=== PATIENT | female | born 1940 | race Caucasian/White ===

== ENCOUNTER 2017-02-06 10:30 | Inpatient (IN) | payer OTHER, MEDICARE ==
[~2017-02-06] VITALS: Ht 170.2 cm; Wt 73.7 kg
[~2017-02-06 10:30] MED LIST: AMLO2.5T PO; ATOR10TA15 PO; ESTR1 PO; HYDR-3580 PO; NORE5TAB PO; TYLE650T9 PO
[2017-02-07 05:53] VITALS: BP 147/70; PULSE 81; RESP 20; TEMP 99.2; O2SAT 96
[2017-02-07] MEDS ORDERED: DEXAMETHASONE SOD PHOS 20 MG/5 ML VIAL ONE (06:06)
[2017-02-07] MEDS ORDERED: VANCOMYCIN HCL 1000 MG VIAL ONE (06:07)
[2017-02-07] MEDS ORDERED: SODIUM CHLOR 0.9% 250 ML INJ 250 ML ONE ×2 (06:07→06:10)
[2017-02-07] MEDS: DEXAMETHASONE SOD PHOS 20 MG/5 ML VIAL IV SCH ×2 (06:10→06:21)
[2017-02-07] MEDS ORDERED: POVIDONE IODINE 7.5% SCRUB 118 ML BOTTLE TOPICAL SCH (06:15)
[2017-02-07] MEDS ORDERED: METOPROLOL TARTRATE 25 MG TAB PO PRN (06:15)
[2017-02-07] MEDS ORDERED: VANCOMYCIN 1000 MG/NS 250 ML (for <70 kg) IV SCH ×2 (06:15)
[2017-02-07] MEDS ORDERED: LACTATED RINGER'S 1000 ML IV PRN (06:15)
[2017-02-07] MEDS ORDERED: INSULIN HUMAN REGULAR 1,000 UNITS/10 ML VIAL SQ PRN (06:15)
[2017-02-07] MEDS ORDERED: CHLORHEXIDINE GLUCONATE 2 % 1 PACK (2 CLOTHS) TOPICAL PRN (06:15)
[2017-02-07] MEDS ORDERED: ceFAZolin 2 GM PREMIX 50 ML IV SCH (06:15)
[2017-02-07] MEDS ORDERED: POVIDONE IODINE 5% (ANTISEPSIS KIT) 4 APPLICATIONS EACH NARE PRN (06:15)
[2017-02-07] MEDS ORDERED: SODIUM CHLORID 0.9% 500 ML IV PRN (06:15)
[2017-02-07] MEDS ORDERED: GENTAMICIN SULFATE 80 MG/2 ML VIAL ONE (06:23)
[2017-02-07] MEDS ORDERED: FAMOTIDINE 20 MG/2 ML VIAL ONE (06:38)
[2017-02-07] MEDS ORDERED: MIDAZOLAM HCL 2 MG/2 ML VIAL ONE (06:38)
[2017-02-07] MEDS ORDERED: ACETAMINOPHEN 1000 MG/100 ML VIAL IV ONE (06:42)
[2017-02-07] MEDS ORDERED: fentaNYL CITRATE 250 MCG/5 ML AMP ONE (06:42)
[2017-02-07] MEDS ORDERED: TRANEXAMIC ACID INJ 716 MG in SODIUM CHLORIDE 0.9% INJ 100 ML IV SCH ×2 (07:00→09:30)
[2017-02-07] MEDS ORDERED: EXPAREL PERI-ARTICULAR INJECTION (TOTAL VOL. 60 ML) P-ARTICULR SCH ×2 (07:00)
[2017-02-07] MEDS ORDERED: NALOXONE HCL 0.4 MG/ML AMP IV PRN (08:45)
[2017-02-07] MEDS ORDERED: Post-op Orders (for Pharmacy) MISC XX ONE (08:45)
[2017-02-07] MEDS ORDERED: ACETAMINOPHEN/HYDROcodone 325 MG/5 MG TAB PO PRN ×2 (08:45)
[2017-02-07] MEDS ORDERED: SODIUM CHLORIDE 0.9% FLUSH 5 ML FLUSH IVF PRN (08:45)
[2017-02-07] MEDS ORDERED: diphenhydrAMINE HCL 50 MG/ML VIAL IV PRN (08:45)
[2017-02-07] MEDS ORDERED: BISACODYL 10 MG SUPP RECTAL PRN (08:45)
[2017-02-07] MEDS ORDERED: ONDANSETRON HCL 4 MG/2 ML VIAL IVP PRN (08:45)
[2017-02-07] MEDS ORDERED: ALUMINUM/MAGNESIUM/SIMETH 30 ML CUP PO PRN (08:45)
[2017-02-07] MEDS ORDERED: ZOLPIDEM TARTRATE 5 MG TAB PO PRN (08:45)
[2017-02-07] MEDS ORDERED: MORPHINE SULFATE 4 MG/ML INJ IV PUSH PRN (08:45)
--- NOTE | 2017-02-07 08:51 | PD.OP ---
cc: Supa Rosa MD Operative Report Date of Surgery: Feb 07, 2017 Preoperative Diagnosis: Right hip severe osteoarthritis Postoperative Diagnosis: Same Procedure: Right total hip arthroplasty Anesthesia: Gen. Surgeon: Supa Rosa Track Announcer(s): OPAL Alvarez The surgical procedure was assisted by my Advanced Registered Nurse Practitioner. My MUSHROOM LABORER presence was necessary throughout this case for the manipulation and positioning of the surgical extremity. My MUSHROOM LABORER was assisting me throughout the duration of this procedure. The skill set of an Advance Registered Nurse Practitioner was medically necessary to complete this procedure. During the surgical case, the instructor adjunct surgical technician was working at the back table and the Advance Registered Nurse Practitioner was directly assisting me. Operation and Findings: IMPLANT DESCRIPTION: 1. [place] Gription Cup, acetabular size 54. 2. [place] AltrX polyethylene, neutral. 4. Corail femoral stem size 11, no collar, standard offset. 5. Femoral head/neck metal, 36, +5. ESTIMATED BLOOD LOSS: 300 cc. JUSTIFICATION FOR PROCEDURE: The patient has end-stage osteoarthritis to the hip. There is an attached conservative measures pathway form in the chart that describes the nonoperative measures that were undertaken prior to consideration of surgical management. The patient understood the risks and benefits of surgical management. See my office notes for further details. PROCEDURE: The patient was brought back to the operative theatre. Adequate anesthesia was obtained. The patient received intravenous vancomycin and Ancef. Note that a test dose of Ancef was given prior to given the full dose. The patient was carefully placed on the operative table. The lower extremity was prepped and draped in the usual sterile fashion. Fluoroscopic images were obtained. We made a standard anterior incision over the hip. We dissected through the TFL fascia, exposing the anterior capsule. Arthrotomy was performed in a T-shaped fashion. The capsule was tagged with a #2 FiberWire. End-stage arthritis was identified. Osteotomy was performed through the femoral neck exposing the acetabulum. Remnants of the labrum were resected and osteophytes were removed. We sequentially reamed the acetabulum. We trialed the hip and placed the final cup into position. This was done under fluoroscopic guidance to obtain the appropriate inclination and anteversion. A manhole cover was placed into the acetabular component. We then placed the final polyethylene into position and confirmed that it was well seated. Capsular attachments on the calcar and the inner aspect of the greater trochanter were resected. On the proximal aspect of the femur we used a rongeur , box osteotome, canal finder, sequential broaches and lateralizing rasp. We calcar planed the proximal femur. Then thoroughly irrigated the wound. We trialed the hip with the appropriate size stem. We placed the final stem in to position and trialed again. The hip was stable while it was externally rotated 70 degrees when the leg was lowered to the floor. The final head was applied, and final fluoroscopic images were obtained. The wound was thoroughly irrigated again. Interarticular injection of liposomal bupivacaine was given. The capsule was closed with #2 FiberWire and #1 Vicryl. The deep fascia was closed with a #2 Stratafix, followed by 2-0 Vicryl in the skin and maral. Postop plan is to weight-bear as tolerated. DVT prophylaxis will be performed with Jessenia, MEHNAZ palma, early mobilization, and Lovenox followed by aspirin. Supa Rosa MD Feb 07, 2017 08:51
[2017-02-07] MEDS ORDERED: ENOX40P SQ (08:54)
[2017-02-07] MEDS ORDERED: NORC5TAB PO (08:54)
[2017-02-07] MEDS ORDERED: ASPI325T PO (08:54)
[2017-02-07] MEDS ORDERED: NORETHINDRONE 5 MG PO SCH (09:00)
[2017-02-07] MEDS: ESTRADIOL 1 MG TAB PO SCH (09:00)
[2017-02-07] MEDS ORDERED: HYDROmorphone HCL PF 1 MG/ML VIAL IV PRN (09:00)
--- NOTE | 2017-02-07 09:19 | RADRPT ---
EXAM DATE/TIME: 02/07/2017 07:17 [facility] COMPARISON: No previous studies available for comparison. INDICATIONS : Right total hip replacement. MEDICAL HISTORY : None. SURGICAL HISTORY : None. ENCOUNTER: Initial ACUITY: 1 day PAIN SCORE: Non-responsive. LOCATION: Right Hip. FINDINGS: AP and oblique views of the right hip were obtained and demonstrate the patient is status post right hip arthroplasty. The femoral and acetabular components are intact. There is normal alignment. CONCLUSION: Expected postoperative change status post arthroplasty. Feng Quigley MD on February 07, 2017 at 9:17 Board Certified Radiologist. This report was verified electronically.
[2017-02-07] MEDS: SODIUM CHLOR 0.9% 1000 ML INJ 1,000 ML IV SCH ×2 (09:28→20:28)
[2017-02-07] MEDS ORDERED: *HYDROmorphone PF 1 MG VIAL PERIprocedural Use ONLY ONE (09:34)
[2017-02-07] MEDS: SODIUM CHLORIDE 0.9% FLUSH 5 ML FLUSH IVF SCH ×2 (09:59→20:28)
[2017-02-07] MEDS ORDERED: DO NOT ADM ANY ANTICOAGULANT DRUGS PRN (10:15)
[2017-02-07] MEDS: amLODIPine BESYLATE 5 MG TAB PO SCH (10:19)
--- NOTE | 2017-02-07 10:33 | RADRPT ---
EXAM DATE/TIME: 02/07/2017 09:09 [facility] COMPARISON: HIP RIGHT AP ONLY WO AP PELVIS, February 07, 2017, 7:17. INDICATIONS : Post total right hip. MEDICAL HISTORY : None. SURGICAL HISTORY : None. ENCOUNTER: Initial ACUITY: 1 day PAIN SCORE: Non-responsive. LOCATION: Right Hip. FINDINGS: AP and crosstable lateral views of the right hip were obtained and demonstrate the patient status pos t right hip arthroplasty. The femoral and acetabular components are intact and in normal alignment. T here is overlying soft tissue swelling and gas as well as surgical skin maral. CONCLUSION: Expected postoperative change status post arthroplasty. Feng Quigley MD on February 07, 2017 at 10:31 Board Certified Radiologist. This report was verified electronically.
--- NOTE | 2017-02-07 11:24 | PD.CONS ---
[facility] By [facility]. Reason for Consult medical management. Primary Care Physician Karen oCncepcion Diagnoses: History of Present Illness This is a 76-year-old female past medical history of hypertension, hyperlipidemia, postmenopausal symptoms, chronic kidney disease stage II who presented with right osteoarthritis status post Right total hip arthroplasty done today by Dr. Rosa. [facility] consulted for medical management. Patient seen in the PACU. She had no complaint at the bedside. Review of Systems Constitutional: DENIES: Diaphoretic episodes, Fatigue, Fever, Weight gain, Weight loss, Chills, Dizziness, Change in appetite, Night Sweats Endocrine: DENIES: Abnorml menstrual pattern, Heat/cold intolerance, Polydipsia , Polyuria, Polyphagia Eyes: DENIES: Blurred vision, Diplopia, Eye inflammation, Eye pain, Vision loss , Photosensitivity, Double Vision Ears, nose, mouth, throat: DENIES: Tinnitus, Hearing loss, Vertigo, Nasal discharge, Oral lesions, Throat pain, Hoarseness, Ear Pain, Running Nose, Epistaxis, Sinus Pain, Toothache, Odynophagia Respiratory: DENIES: Apneas, Cough, Snoring, Wheezing, Hemoptysis, Sputum production, Shortness of breath Cardiovascular: DENIES: Chest pain, Palpitations, Syncope, Dyspnea on Exertion , PND, Lower Extremity Edema, Orthopnea, Claudication Gastrointestinal: DENIES: Abdominal pain, Black stools, Bloody stools, Constipation, Diarrhea, Nausea, Vomiting, Difficulty Swallowing, Anorexia Genitourinary: DENIES: Abnormal vaginal bleeding, Dysmenorrhea, Dyspareunia, Sexual dysfunction, Urinary frequency, Urinary incontinence, Urgency, Hematuria , Dysuria, Nocturia, Vaginal discharge Musculoskeletal: COMPLAINS OF: Joint pain, DENIES: Muscle aches, Stiffness, Joint Swelling, Back pain, Neck pain Integumentary: DENIES: Abnormal pigmentation, Pruritus, Rash, Nail changes, Breast masses, Breast skin changes, Nipple discharge Hematologic/lymphatic: DENIES: Bruising, Lymphadenopathy Immunologic/allergic: DENIES: Eczema, Urticaria Neurologic: DENIES: Abnormal gait, Headache, Localized weakness, Paresthesias, Seizures, Speech Problems, Tremor, Poor Balance Psychiatric: DENIES: Anxiety, Confusion, Mood changes, Depression, Hallucinations, Agitation, Suicidal Ideation, Homicidal Ideation, Delusions Past Family Social History Allergies: Coded Allergies: Amoxicillin (Verified Allergy, Severe, 02/07/17) Ampicillin (Verified Allergy, Severe, 02/07/17) Claritin-D (Verified Allergy, Severe, Tingling, 02/07/17) TINGLING IN ARMS, "FELT LIKE I WAS HAVING A STROKE" Horse Serum Proteins (Verified Allergy, Severe, 02/07/17) Premarin (Verified Allergy, Severe, NUMBNESS (FACE), 02/07/17) Provera (Verified Allergy, Severe, NUMBNESS (FACE), 02/07/17) Uncoded Allergies: SWINE FLU VACCINE (Allergy, Severe, 09/19/10) Past Medical History Right hip osteoarthritis, hypertension, hyperlipidemia, post abnormal symptoms, chronic kidney disease stage II, osteopenia, chronic micro-hematuria that was worked up completely and said to be benign. Past Surgical History Left knee scope on 10/15/2008 Reported Medications Hydrocodone-Acetaminophen 7.5-325 mg Tab 1 Tab PO Q4H PRN Atorvastatin (Atorvastatin Calcium) 10 Mg Tab 10 Mg PO HS Amlodipine (Amlodipine Besylate) 2.5 Mg Tab 2.5 Mg PO DAILY Norethindrone (Norethindrone Acetate) 5 Mg Tab 5 Mg PO DAILY Estrace (Estradiol) 1 Mg Tab 1 Mg PO DAILY Tylenol 8 Hour Arthritis (Acetaminophen) 650 Mg Tab 1 Tab PO Q4-6H PRN Active Ordered Medications Current Medications Dexamethasone Sodium Phosphate 20 mg 20 mg STK-MED ONCE .ROUTE ; Start 02/07/17 at 06:06; Stop 02/07/17 at 06:07; Status DC Sodium Chloride (NS 250 ml Inj) 250 ml @ As Directed STK-MED ONCE .ROUTE ; Start 02/07/17 at 06:07; Stop 02/07/17 at 06:08; Status DC Vancomycin HCl 1000 mg 1,000 mg STK-MED ONCE .ROUTE Last administered on 06:10; Start 02/07/17 at 06:07; Stop 02/07/17 at 06:08; Status DC Lactated Ringer's 1,000 ml @ 30 mls/hr Q24H PRN IV SEE LABEL COMMENTS Last administered on 02/07/17 05:50; Start 02/07/17 at 06:15; Stop 02/07/17 at 09:28 ; Status DC Sodium Chloride (NS 500 ml Inj) 500 ml @ 30 mls/hr [id number] PRN IV SEE LABEL COMMENTS; Start 02/07/17 at 06:15; Stop 02/10/17 at 06:14 Metoprolol Tartrate (Lopressor) 25 mg RN CLINICAL RESEARCH PRN PO SEE LABEL COMMENTS; Start 02/07/17 at 06:15; Stop 02/10/17 at 06:14 Povidone Iodine (Betadine 5% Antisepsis Kit) 1 applic RN CLINICAL RESEARCH PRN EACH NARE SEE LABEL COMMENTS; Start 02/07/17 at 06:15; Stop 02/10/17 at 06:14 Chlorhexidine Gluconate (Chlorhexidine 2% Cloth) 3 pack RN CLINICAL RESEARCH PRN TOPICAL SEE LABEL COMMENTS; Start 02/07/17 at 06:15; Stop 02/10/17 at 06:14 Insulin Human Regular See Protocol Table ... RN CLINICAL RESEARCH PRN SQ SEE PROTOCOL TABLE ; Start 02/07/17 at 06:15; Stop 02/10/17 at 06:14 Sodium Chloride (NS 250 ml Inj) 250 ml @ As Directed STK-MED ONCE .ROUTE Last administered on 02/07/17 06:10; Start 02/07/17 at 06:10; Stop 02/07/17 at 06:11 ; Status DC Povidone Iodine 1 applic 1 applic ONCE TOPICAL ; Start 02/07/17 at 06:15; Stop 02/10/17 at 06:14 Cefazolin Sodium/ Dextrose 50 ml @ 100 mls/hr RN CLINICAL RESEARCH IV ; Start 02/07/17 at 06:15; Stop 02/10/17 at 06:14 Vancomycin HCl 1000 mg/Sodium Chloride 250 ml @ 250 mls/hr RN CLINICAL RESEARCH IV ; Start 02/07/17 at 06:15; Stop 02/10/17 at 06:14 Tranexamic Acid 716 mg/Sodium Chloride 107.16 ml @ 200 mls/ hr ONCE IV Last administered on 02/07/17 07:16; Start 02/07/17 at 07:00; Stop 02/07/17 at 13:00 Bupivacaine Liposome/Sodium Chloride (Exparel Pf 1.3% Inj/NS Inj) 60 ml @ 120 mls/hr ONCE P-ARTICULR Last administered on 02/07/17 07:48; Start 02/07/17 at 07:00; Stop 02/07/17 at 13:00 Dexamethasone Sodium Phosphate (Decadron Inj) 10 mg RN CLINICAL RESEARCH IV Last administered on 02/07/17 06:10; Start 02/07/17 at 06:30; Stop 02/08/17 at 06:29 Gentamicin Sulfate (Gentamicin Inj) 240 mg STK-MED ONCE .ROUTE Last administered on 02/07/17 07:49; Start 02/07/17 at 06:23; Stop 02/07/17 at 06:24 ; Status DC Famotidine (Pepcid Inj) 20 mg STK-MED ONCE .ROUTE ; Start 02/07/17 at 06:38; Stop 02/07/17 at 06:39; Status DC Midazolam HCl (Versed Inj) 2 mg STK-MED ONCE .ROUTE ; Start 02/07/17 at 06:38; Stop 02/07/17 at 06:39; Status DC Acetaminophen (Ofirmev Inj) 1,000 mg STK-MED ONCE IV ; Start 02/07/17 at 06:42; Stop 02/07/17 at 06:43; Status DC Fentanyl Citrate (fentaNYL INJ) 100 mcg STK-MED ONCE .ROUTE ; Start 02/07/17 at 06:42; Stop 02/07/17 at 06:43; Status DC Fentanyl Citrate (fentaNYL INJ) 250 mcg STK-MED ONCE .ROUTE ; Start 02/07/17 at 06:42; Stop 02/07/17 at 06:43; Status DC Amlodipine Besylate (Norvasc) 2.5 mg DAILY PO ; Start 02/07/17 at 09:00 Atorvastatin Calcium (Lipitor) 10 mg HS PO ; Start 02/07/17 at 21:00 Estradiol (Estradiol) 1 mg DAILY PO ; Start 02/07/17 at 09:00 Non-Formulary Medication 5 mg 5 mg DAILY PO ; Start 02/07/17 at 09:00; Status UNV Sodium Chloride (NS 1000 ml Inj) 1,000 ml @ 100 mls/hr Q10H IV Last administered on 02/07/17 09:28; Start 02/07/17 at 08:45 IV Flush (NS Flush) 2 ml UNSCH PRN IVF FLUSH AFTER USING IV ACCESS; Start 02/07 at 08:45 IV Flush (NS Flush) 2 ml BID IVF Last administered on 02/07/17 09:59; Start at 09:00 Miscellaneous Information (Post-op Orders (for Pharmacy)) STAT ONCE XX ; Start 02/07/17 at 08:45; Stop 02/07/17 at 09:40; Status DC Dexamethasone Sodium Phosphate (Decadron Inj) 10 mg ONCE ONCE IV ; Start at 07:45; Stop 02/08/17 at 07:46 Enoxaparin Sodium (Lovenox Inj) 40 mg Q24H SQ ; Start 02/08/17 at 08:00; Stop at 08:01 Acetaminophen/ Hydrocodone Bitart ([place] 5-325 Mg) 1 tab Q4H PRN PO PAIN LESS THAN 5 ON SCALE; Start 02/07/17 at 08:45 Acetaminophen/ Hydrocodone Bitart 2 tab 2 tab Q4H PRN PO PAIN SCALE 5 TO 10; Start 02/07/17 at 08:45 Tranexamic Acid/ Sodium Chloride (Cyklokapron Inj/ NS Inj) 107.16 ml @ 200 mls / hr UNSCH IV Last administered on 02/07/17 10:00; Start 02/07/17 at 09:30; Stop 02/07/17 at 15:30 Multivitamins/ Minerals Therapeutic (Theragran M Tab) 1 tab BID PO ; Start 02/08 at 21:00; Stop 04/09/17 at 20:59 Ondansetron HCl (Zofran Inj) 4 mg Q6H PRN IVP NAUSEA OR VOMITING; Start at 08:45 Docusate Sodium (Colace) 100 mg BID PO ; Start 02/08/17 at 21:00 Al Hydrox/Mg Hydrox/Simethicone (Mag-Al Plus Susp Liq) 30 ml Q6H PRN PO INDIGESTION; Start 02/07/17 at 08:45 Zolpidem Tartrate (Ambien) 5 mg HS PRN PO SLEEP; Start 02/07/17 at 08:45 Bisacodyl (Dulcolax Supp) 10 mg DAILY PRN RECTAL CONSTIPATION; Start 02/07/17 at 08:45 Magnesium Hydroxide (Milk Of Magnesia Liq) 30 ml DAILY PRN PO CONSTIPATION; Start 02/07/17 at 08:45 Naloxone HCl (Narcan Inj) 0.4 mg UNSCH PRN IV RESPIRATORY RATE LESS THAN 10; Start 02/07/17 at 08:45 Diphenhydramine HCl (Benadryl Inj) 25 mg Q6H PRN IV ITCHING; Start 02/07/17 at 08:45 Morphine Sulfate 2 mg 2 mg Q3H PRN IV PUSH pain greater than 5; Start 02/07/17 at 08:45; Stop 02/07/17 at 08:47; Status DC Cefazolin Sodium/ Sodium Chloride (Ancef Inj/NS Inj) 100 ml @ 200 mls/hr Q6H IV ; Start 02/07/17 at 12:00; Stop 02/08/17 at 00:29 Hydromorphone HCl (Dilaudid Pf Inj) 1 mg Q3H PRN IV PAIN SCALE 6 TO 10; Start 02/07/17 at 09:00 Hydromorphone HCl (*DILAUDID PF INJ PERIprocedural ONLY) 1 mg STK-MED ONCE .ROUTE Last administered on 02/07/17t 09:34; Start 02/07/17 at 09:34; Stop at 09:35; Status DC Miscellaneous Information ALL NURSING DEPARTME... UNSCH PRN .XX SEE LABEL COMMENTS; Start 02/07/17 at 10:15; Stop 02/08/17 at 10:14 Family History Father, mother, sister has history of hypertension. Social History Patient stop smoking. She smoked for 15 years. Drinks occasionally. She is . Physical Exam Vital Signs Vital Signs Date Time Temp Pulse Resp B/P Pulse Ox O2 Delivery O2 Flow Rate FiO2 02/07/17 11:00 80 13 155/66 100 Nasal Cannula 2 02/07/17 10:30 72 12 134/58 100 Nasal Cannula 2 02/07/17 10:00 76 12 146/64 100 Nasal Cannula 2 02/07/17 09:45 74 13 117/55 99 Nasal Cannula 2 02/07/17 09:30 67 12 107/53 98 Nasal Cannula 2 02/07/17 09:15 68 15 101/55 99 Nasal Cannula 2 02/07/17 09:07 97.8 74 16 115/57 96 Simple Mask 6 02/07/17 05:53 99.2 81 20 147/70 96 Physical Exam GENERAL: This is a well-nourished, well-developed patient, in no apparent distress. SKIN: No rashes, ecchymoses or lesions. Cool and dry. HEAD: Atraumatic. Normocephalic. No temporal or scalp tenderness. EYES: Pupils equal round and reactive. Extraocular motions intact. No scleral icterus. No injection or drainage. ENT: Nose without bleeding, purulent drainage or septal hematoma. Throat without erythema, tonsillar hypertrophy or exudate. Uvula midline. Airway patent. NECK: Trachea midline. No JVD or lymphadenopathy. Supple, nontender, no meningeal signs. CARDIOVASCULAR: Regular rate and rhythm without murmurs, gallops, or rubs. RESPIRATORY: Clear to auscultation. Breath sounds equal bilaterally. No wheezes , rales, or rhonchi. GASTROINTESTINAL: Abdomen soft, non-tender, nondistended. No hepato-splenomegaly , or palpable masses. No guarding. MUSCULOSKELETAL: Right hip limited range of motion secondary to surgery. SCDs in place. NEUROLOGICAL: Awake and alert. Cranial nerves II through XII intact. Motor and sensory grossly within normal limits. Five out of 5 muscle strength in all muscle groups. Normal speech. Laboratory Laboratory Tests Test 02/07/17 05:55 Blood Type O POSITIVE Antibody Screen NEGATIVE Blood Bank Comment Imaging Last Impressions Hip and Pelvis X-Ray 02/07/17 0845 Signed Impressions: Service Date/Time: Tuesday, February 07, 2017 09:09 - CONCLUSION: Expected postoperative change status post arthroplasty. Feng Quigley MD Hip X-Ray 02/07/17 0000 Signed Impressions: Service Date/Time: Tuesday, February 07, 2017 07:17 - CONCLUSION: Expected postoperative change status post arthroplasty. Feng Quigley MD Assessment and Plan Assessment and Plan 76-year-old female with chronic right OA Chronic right OA -Failed conservative management. -s/p Right total hip arthroplasty on 02/07/[address] Rosa. -Continue management per orthopedic surgeon. Hypertension, hyperlipidemia, postmenopausal symptoms, osteopenia, chronic kidney disease stage II -Home medication already resumed by primary team. Agreed with management. DVT prophylaxis -Lovenox. Discussed Condition With patient Kaitlin Aldrich MD Feb 07, 2017 11:24
[2017-02-07 12:00] VITALS: BP 133/71; PULSE 99; RESP 18; TEMP 96.8; O2SAT 100
[2017-02-07] MEDS ORDERED: PROPOFOL 200 MG/20 ML AMP IV ONE (12:16)
[2017-02-07] MEDS ORDERED: NEOSTIGMINE 3 MG/3 ML SYR IV ONE (12:17)
[2017-02-07] MEDS ORDERED: ePHEDrine/NS 25 MG/5 ML SYR IV ONE (12:17)
[2017-02-07] MEDS ORDERED: LACTATED RINGER'S 1000 ML INJ 1,000 ML IV ONE (12:22)
[2017-02-07] MEDS ORDERED: ONDANSETRON HCL 4 MG/2 ML VIAL IV PUSH ONE (12:22)
[2017-02-07] MEDS ORDERED: PHENYLEPH/NS 1000 MCG/10 ML SYR IV ONE (12:22)
--- NOTE | 2017-02-07 15:59 | HHI.DCPOC ---
Discharge Care Plan Diagnosis: (1) Osteoarthritis of right hip (2) Status post total hip replacement, right Your Health Problems Are: Difficulty with ADL Goals to Promote Your Health * To prevent worsening of your condition and complications * To maintain your health at the optimal level Directions to Meet Your Goals Take your medications as prescribed Follow your dietary instruction Follow activity as directed Keep your appointments as scheduled Take your immunizations and boosters as scheduled If your symptoms worsen call your PCP, if no PCP go to Urgent Care Center or Emergency Room Smoking is Dangerous to Your Health. Avoid second hand smoke Call the 24-hour hour crisis hotline for domestic abuse at [facility] Feb 07, 2017 15:59
--- NOTE | 2017-02-07 16:00 | HHI.FF ---
Face to Face Verification Diagnosis: (1) Osteoarthritis of right hip (2) Status post total hip replacement, right Physical Therapy Gait training, Transfer training, bed to chair Hip: Total hip Right LE Weight Bearing: WB as tolerated Right LE Range of Motion: Active ROM Nursing Nursing: Ladan teaching, Dressing changes Dressing Changes: Daily dressing change I have seen patient Fabiola Matthew on 02/07/17. My clinical findings support the need for the requested home health care services because: Limited ability to care for self High risk of falls I certify that my clinical findings support that this patient is homebound because: Post-op weakness Unsteady gait/balance Christiano [facility] Feb 07, 2017 16:00
[2017-02-07] MEDS ORDERED: WALKER WHEELS/F1 MIS (16:01)
[2017-02-07] MEDS ORDERED: COMMODE 3-IN-11 MIS (16:01)
[2017-02-07 16:06] VITALS: BP 142/65; PULSE 86; RESP 16; TEMP 98.4; O2SAT 100
[2017-02-07 18:01] VITALS: O2SAT 100
[2017-02-07 20:25] VITALS: BP 149/67; PULSE 82; RESP 17; TEMP 96.8; O2SAT 99
[2017-02-07] MEDS: ATORVASTATIN 10 MG TAB PO SCH (20:28)
[2017-02-08 00:25] VITALS: BP 140/65; PULSE 85; RESP 17; TEMP 98.5; O2SAT 98
[2017-02-08 04:23] VITALS: BP 148/67; PULSE 89; RESP 17; TEMP 98; O2SAT 96
[2017-02-08] MEDS: SODIUM CHLOR 0.9% 1000 ML INJ 1,000 ML IV SCH ×2 (04:45→14:45)
[2017-02-08 05:56] LABS: HEMATOCRIT 33.2 % (35.0-46.0); MEAN CELL VOLUME 87.9 FL (80.0-100.0); MEAN CORPUSCULAR HEMOGLOBIN 29.3 PG (27.0-34.0); MEAN CORPUSCULAR HGB CONC 33.4 % (32.0-36.0); PLATELET COUNT 205 TH/MM3 (150-450); RED BLOOD COUNT 3.77 MIL/MM3 (4.00-5.30); RED CELL DISTRIBUTION WIDTH 12.8 % (11.6-17.2); REVIEW FLAG FINAL; WHITE BLOOD COUNT 14.8 TH/MM3 (4.0-11.0)
[2017-02-08] MEDS ORDERED: DEXAMETHASONE SOD PHOS 20 MG/5 ML VIAL IV ONE (07:45)
[2017-02-08 08:00] VITALS: BP 153/70; PULSE 90; RESP 18; TEMP 99.1; O2SAT 98
[2017-02-08] MEDS: ESTRADIOL 1 MG TAB PO SCH (08:55)
[2017-02-08] MEDS: amLODIPine BESYLATE 5 MG TAB PO SCH (08:55)
[2017-02-08] MEDS: ENOXAPARIN SODIUM 40 MG/0.4 ML SYRINGE SQ SCH (08:58)
[2017-02-08] MEDS: SODIUM CHLORIDE 0.9% FLUSH 5 ML FLUSH IVF SCH ×2 (08:58→21:00)
[2017-02-08] MEDS: MAGNESIUM HYDROXIDE SUSP 30 ML CUP PO PRN (09:12)
--- NOTE | 2017-02-08 11:54 | PD.ORT.PN ---
Subjective Post Op Day #: 1 Subjective Remarks Patient is OOB in chair with family at bedside. Patient notes minimal pain to the right hip. Patient is ambulatory. Patient on the fence as to whether to go home today or tomorrow. Objective Vitals Vital Signs Date Time Temp Pulse Resp B/P Pulse Ox O2 Delivery O2 Flow Rate FiO2 02/08/17 08:00 99.1 90 18 153/70 98 02/08/17 04:23 98.0 89 17 148/67 96 02/08/17 00:25 98.5 85 17 140/65 98 02/07/17 20:25 96.8 82 17 149/67 99 02/07/17 20:00 99 Room Air 02/07/17 18:01 100 Nasal Cannula 2.00 02/07/17 16:06 98.4 86 16 142/65 100 02/07/17 12:09 Nasal Cannula 2.00 02/07/17 12:00 96.8 99 18 133/71 100 02/07/17 11:45 97.5 99 14 129/60 100 Nasal Cannula 2 I/O 02/07/17 02/07/17 02/07/17 02/08/17 02/08/17 02/08/17 07:00 15:00 23:00 07:00 15:00 23:00 Intake Total 1956 ml 1124 ml 757 ml Output Total 950 ml 750 ml 1800 ml Balance 1006 ml 374 ml -1043 ml Intake Oral 20 ml 240 ml 120 ml IV Total 536 ml 884 ml 637 ml Other 1400 ml Output Urine Total 150 ml 750 ml 1800 ml Estimated Blood Loss 200 ml Other 600 ml # Bowel Movements 0 0 Result Diagram: 02/08/17 0528 Procedures Right SHANA Objective Remarks The patient's dressing was changed today with scant serosanguineous drainage. Incision is well approximated with surgical clips intact. No redness or s/s of infection. EHL/TA/G intact. 2+ pedal pulse. No calf tenderness or swelling. Minimal swelling. + SILT. Assessment & Plan Ortho Post Op Day #: 1 Problem List: Assessment and Plan POD #1: Right SHANA 1. WBAT RLE 2. Lovenox followed by ASA for DVT prophylaxis 3. Ice to the right hip PRN 4. Anticipatory discharge this afternoon or in the morning. Christiano Lima Feb 08, 2017 11:54
[2017-02-08 12:00] VITALS: BP 158/73; PULSE 88; RESP 18; TEMP 98.5; O2SAT 97
[2017-02-08 16:00] VITALS: BP 147/69; PULSE 81; RESP 18; TEMP 98.1; O2SAT 96
--- NOTE | 2017-02-08 16:17 | HHI.PR ---
Subjective Remarks Follow-up for medical management Patient stated that she is doing well. She stated that she is earning on her own. She has not had a bowel movement yet. Patient also stated that she felt some palpitation after IV pain medication. Otherwise she denies any chest pain , shortness of breathing. Patient is found sitting in her chair in no distress. Objective Vitals Vital Signs Date Time Temp Pulse Resp B/P Pulse Ox O2 Delivery O2 Flow Rate FiO2 02/08/17 08:00 99.1 90 18 153/70 98 02/08/17 04:23 98.0 89 17 148/67 96 02/08/17 00:25 98.5 85 17 140/65 98 02/07/17 20:25 96.8 82 17 149/67 99 02/07/17 20:00 99 Room Air 02/07/17 18:01 100 Nasal Cannula 2.00 I/O 02/07/17 02/07/17 02/07/17 02/08/17 02/08/17 02/08/17 07:00 15:00 23:00 07:00 15:00 23:00 Intake Total 1956 ml 1124 ml 757 ml Output Total 950 ml 750 ml 1800 ml Balance 1006 ml 374 ml -1043 ml Intake Oral 20 ml 240 ml 120 ml IV Total 536 ml 884 ml 637 ml Other 1400 ml Output Urine Total 150 ml 750 ml 1800 ml Estimated Blood Loss 200 ml Other 600 ml # Bowel Movements 0 0 Result Diagram: 02/08/17 0528 Objective Remarks GENERAL: in nad NECK: Supple, trachea midline. No JVD or lymphadenopathy. CARDIOVASCULAR: Regular rate and rhythm without murmurs, gallops, or rubs. RESPIRATORY: Breath sounds equal bilaterally. No accessory muscle use. GASTROINTESTINAL: Abdomen soft, non-tender, nondistended. Medications and IVs Current Medications Dexamethasone Sodium Phosphate 20 mg 20 mg STK-MED ONCE .ROUTE ; Start 02/07/17 at 06:06; Stop 02/07/17 at 06:07; Status DC Sodium Chloride (NS 250 ml Inj) 250 ml @ As Directed STK-MED ONCE .ROUTE ; Start 02/07/17 at 06:07; Stop 02/07/17 at 06:08; Status DC Vancomycin HCl 1000 mg 1,000 mg STK-MED ONCE .ROUTE Last administered on t 06:10; Start 02/07/17 at 06:07; Stop 02/07/17 at 06:08; Status DC Lactated Ringer's 1,000 ml @ 30 mls/hr Q24H PRN IV SEE LABEL COMMENTS Last administered on 02/07/17 05:50; Start 02/07/17 at 06:15; Stop 02/07/17 at 09:28 ; Status DC Sodium Chloride (NS 500 ml Inj) 500 ml @ 30 mls/hr [id number] PRN IV SEE LABEL COMMENTS; Start 02/07/17 at 06:15; Stop 02/10/17 at 06:14 Metoprolol Tartrate (Lopressor) 25 mg [employer] PRN PO SEE LABEL COMMENTS; Start 02/07/17 at 06:15; Stop 02/10/17 at 06:14 Povidone Iodine (Betadine 5% Antisepsis Kit) 1 applic [employer] PRN EACH NARE SEE LABEL COMMENTS; Start 02/07/17 at 06:15; Stop 02/10/17 at 06:14 Chlorhexidine Gluconate (Chlorhexidine 2% Cloth) 3 pack [employer] PRN TOPICAL SEE LABEL COMMENTS; Start 02/07/17 at 06:15; Stop 02/10/17 at 06:14 Insulin Human Regular See Protocol Table ... [employer] PRN SQ SEE PROTOCOL TABLE ; Start 02/07/17 at 06:15; Stop 02/10/17 at 06:14 Sodium Chloride (NS 250 ml Inj) 250 ml @ As Directed STK-MED ONCE .ROUTE Last administered on 02/07/17 06:10; Start 02/07/17 at 06:10; Stop 02/07/17 at 06:11 ; Status DC Povidone Iodine 1 applic 1 applic ONCE TOPICAL ; Start 02/07/17 at 06:15; Stop 02/10/17 at 06:14 Cefazolin Sodium/ Dextrose 50 ml @ 100 mls/hr [employer] IV ; Start 02/07/17 at 06:15; Stop 02/10/17 at 06:14 Vancomycin HCl 1000 mg/Sodium Chloride 250 ml @ 250 mls/hr [employer] IV ; Start 02/07/17 at 06:15; Stop 02/10/17 at 06:14 Tranexamic Acid 716 mg/Sodium Chloride 107.16 ml @ 200 mls/ hr ONCE IV Last administered on 02/07/17 07:16; Start 02/07/17 at 07:00; Stop 02/07/17 at 13:00 ; Status DC Bupivacaine Liposome/Sodium Chloride (Exparel Pf 1.3% Inj/NS Inj) 60 ml @ 120 mls/hr ONCE P-ARTICULR Last administered on 02/07/17 07:48; Start 02/07/17 at 07:00; Stop 02/07/17 at 13:00; Status DC Dexamethasone Sodium Phosphate (Decadron Inj) 10 mg [employer] IV Last administered on 02/07/17 06:10; Start 02/07/17 at 06:30; Stop 02/08/17 at 06:29 ; Status DC Gentamicin Sulfate (Gentamicin Inj) 240 mg STK-MED ONCE .ROUTE Last administered on 02/07/17 07:49; Start 02/07/17 at 06:23; Stop 02/07/17 at 06:24 ; Status DC Famotidine (Pepcid Inj) 20 mg STK-MED ONCE .ROUTE ; Start 02/07/17 at 06:38; Stop 02/07/17 at 06:39; Status DC Midazolam HCl (Versed Inj) 2 mg STK-MED ONCE .ROUTE ; Start 02/07/17 at 06:38; Stop 02/07/17 at 06:39; Status DC Acetaminophen (Ofirmev Inj) 1,000 mg STK-MED ONCE IV ; Start 02/07/17 at 06:42; Stop 02/07/17 at 06:43; Status DC Fentanyl Citrate (fentaNYL INJ) 100 mcg STK-MED ONCE .ROUTE ; Start 02/07/17 at 06:42; Stop 02/07/17 at 06:43; Status DC Fentanyl Citrate (fentaNYL INJ) 250 mcg STK-MED ONCE .ROUTE ; Start 02/07/17 at 06:42; Stop 02/07/17 at 06:43; Status DC Amlodipine Besylate (Norvasc) 2.5 mg DAILY PO Last administered on 02/08/17 08 :55; Start 02/07/17 at 09:00 Atorvastatin Calcium (Lipitor) 10 mg HS PO Last administered on 02/07/17 20:28 ; Start 02/07/17 at 21:00 Estradiol (Estradiol) 1 mg DAILY PO Last administered on 02/08/17 08:55; Start 02/07/17 at 09:00 Patient Own Medication PT OWN MED: NORETHINDRONE 5MG PO DAILY DAILY PO ; Start 02/07/17 at 09:00; Status Hold Sodium Chloride (NS 1000 ml Inj) 1,000 ml @ 100 mls/hr Q10H IV Last administered on 02/07/17 20:28; Start 02/07/17 at 08:45 IV Flush (NS Flush) 2 ml UNSCH PRN IVF FLUSH AFTER USING IV ACCESS; Start 02/07 at 08:45 IV Flush (NS Flush) 2 ml BID IVF Last administered on 02/08/17 08:58; Start at 09:00 Miscellaneous Information (Post-op Orders (for Pharmacy)) STAT ONCE XX ; Start 02/07/17 at 08:45; Stop 02/07/17 at 09:40; Status DC Dexamethasone Sodium Phosphate (Decadron Inj) 10 mg ONCE ONCE IV Last administered on 02/08/17 08:55; Start 02/08/17 at 07:45; Stop 02/08/17 at 07:46 ; Status DC Enoxaparin Sodium (Lovenox Inj) 40 mg Q24H SQ Last administered on 02/08/17 08 :58; Start 02/08/17 at 08:00; Stop 02/17/17 at 08:01 Acetaminophen/ Hydrocodone Bitart (Enoree 5-325 Mg) 1 tab Q4H PRN PO PAIN LESS THAN 5 ON SCALE Last administered on 02/08/17 13:43; Start 02/07/17 at 08:45 Acetaminophen/ Hydrocodone Bitart 2 tab 2 tab Q4H PRN PO PAIN SCALE 5 TO 10; Start 02/07/17 at 08:45 Tranexamic Acid/ Sodium Chloride (Cyklokapron Inj/ NS Inj) 107.16 ml @ 200 mls / hr UNSCH IV Last administered on 02/07/17 10:00; Start 02/07/17 at 09:30; Stop 02/07/17 at 15:30; Status DC Multivitamins/ Minerals Therapeutic (Theragran M Tab) 1 tab BID PO ; Start 02/08 at 21:00; Stop 04/09/17 at 20:59 Ondansetron HCl (Zofran Inj) 4 mg Q6H PRN IVP NAUSEA OR VOMITING Last administered on 02/07/17 12:53; Start 02/07/17 at 08:45 Docusate Sodium (Colace) 100 mg BID PO ; Start 02/08/17 at 21:00 Al Hydrox/Mg Hydrox/Simethicone (Mag-Al Plus Susp Liq) 30 ml Q6H PRN PO INDIGESTION; Start 02/07/17 at 08:45 Zolpidem Tartrate (Ambien) 5 mg HS PRN PO SLEEP; Start 02/07/17 at 08:45 Bisacodyl (Dulcolax Supp) 10 mg DAILY PRN RECTAL CONSTIPATION; Start 02/07/17 at 08:45 Magnesium Hydroxide (Milk Of Magnesia Liq) 30 ml DAILY PRN PO CONSTIPATION Last administered on 02/08/17 09:12; Start 02/07/17 at 08:45 Naloxone HCl (Narcan Inj) 0.4 mg UNSCH PRN IV RESPIRATORY RATE LESS THAN 10; Start 02/07/17 at 08:45 Diphenhydramine HCl (Benadryl Inj) 25 mg Q6H PRN IV ITCHING; Start 02/07/17 at 08:45 Morphine Sulfate 2 mg 2 mg Q3H PRN IV PUSH pain greater than 5; Start 02/07/17 at 08:45; Stop 02/07/17 at 08:47; Status DC Cefazolin Sodium/ Sodium Chloride (Ancef Inj/NS Inj) 100 ml @ 200 mls/hr Q6H IV Last administered on 02/08/17 00:51; Start 02/07/17 at 12:00; Stop at 00:29; Status DC Hydromorphone HCl (Dilaudid Pf Inj) 1 mg Q3H PRN IV PAIN SCALE 6 TO 10 Last administered on 02/07/17 14:26; Start 02/07/17 at 09:00 Hydromorphone HCl (*DILAUDID PF INJ PERIprocedural ONLY) 1 mg STK-MED ONCE .ROUTE Last administered on 02/07/17 09:34; Start 02/07/17 at 09:34; Stop at 09:35; Status DC Miscellaneous Information ALL NURSING DEPARTME... UNSCH PRN .XX SEE LABEL COMMENTS; Start 02/07/17 at 10:15; Stop 02/08/17 at 10:14; Status DC A/P Assessment and Plan 76-year-old female with chronic right OA Chronic right OA -Failed conservative management. -s/p Right total hip arthroplasty on 02/07/[address] Rosa. -Continue management per orthopedic surgeon. Hypertension, hyperlipidemia, postmenopausal symptoms, osteopenia, chronic kidney disease stage II -Continue her current regimen. DVT prophylaxis -Lovenox. Discharge Planning Patient medically clear for discharge. Patient states she is going home with home health. Kaitlin Aldrich MD Feb 08, 2017 16:17
[2017-02-08 20:25] VITALS: BP 147/67; PULSE 84; RESP 17; TEMP 96.8; O2SAT 94
[2017-02-08] MEDS: ATORVASTATIN 10 MG TAB PO SCH (21:50)
[2017-02-08] MEDS: DOCUSATE SODIUM 100 MG CAP PO SCH (21:50)
[2017-02-08] MEDS: MULTIVITAMINS/MINERALS THERAPEUTIC TAB PO SCH (21:51)
[2017-02-09 00:20] VITALS: BP 136/76; PULSE 74; RESP 17; TEMP 98.4; O2SAT 98
[2017-02-09 04:20] VITALS: BP 158/70; PULSE 76; RESP 17; TEMP 98.1; O2SAT 98
[2017-02-09 06:04] LABS: HEMATOCRIT 31.6 % (35.0-46.0); MEAN CELL VOLUME 84.7 FL (80.0-100.0); MEAN CORPUSCULAR HEMOGLOBIN 29.1 PG (27.0-34.0); MEAN CORPUSCULAR HGB CONC 34.4 % (32.0-36.0); PLATELET COUNT 201 TH/MM3 (150-450); RED BLOOD COUNT 3.73 MIL/MM3 (4.00-5.30); RED CELL DISTRIBUTION WIDTH 12.5 % (11.6-17.2); REVIEW FLAG FINAL; WHITE BLOOD COUNT 17.4 TH/MM3 (4.0-11.0)
[2017-02-09 08:00] VITALS: BP 141/61; PULSE 91; RESP 18; TEMP 99.8; O2SAT 98
[2017-02-09] MEDS: SODIUM CHLORIDE 0.9% FLUSH 5 ML FLUSH IVF SCH (09:00)
[2017-02-09] MEDS: amLODIPine BESYLATE 5 MG TAB PO SCH (09:18)
[2017-02-09] MEDS: MULTIVITAMINS/MINERALS THERAPEUTIC TAB PO SCH (09:18)
[2017-02-09] MEDS: MAGNESIUM HYDROXIDE SUSP 30 ML CUP PO PRN (09:18)
[2017-02-09] MEDS: DOCUSATE SODIUM 100 MG CAP PO SCH (09:19)
[2017-02-09] MEDS: ESTRADIOL 1 MG TAB PO SCH (09:19)
[2017-02-09] MEDS: ENOXAPARIN SODIUM 40 MG/0.4 ML SYRINGE SQ SCH (09:20)
[2017-02-09] MEDS: SODIUM CHLOR 0.9% 1000 ML INJ 1,000 ML IV SCH (10:45)
[2017-02-09 12:00] VITALS: BP 140/58; PULSE 78; RESP 18; TEMP 97.9; O2SAT 100
--- NOTE | 2017-02-12 13:47 | HHI.DS ---
Discharge Summary Admission Date Feb 07, 2017 at 05:10 Discharge Date: Feb 09, 2017 Admitting Diagnosis Osteoarthritis of the right hip Status post total hip arthroplasty, RIGHT Diagnosis: (1) Osteoarthritis of right hip Diagnosis: Principal (2) Status post total hip replacement, right Diagnosis: Principal Procedures Right SHANA Brief History This is a 76 year old female patient with severe osteoarthritis of the RIGHT hip CBC/BMP: 02/09/17 0519 PE at Discharge The patient's dressing was changed today with scant serosanguineous drainage. Incision is well approximated with surgical clips intact. No redness or s/s of infection. EHL/TA/G intact. 2+ pedal pulse. No calf tenderness or swelling. Minimal swelling. + SILT. Hospital Course The patient was admitted to the hospital with severe osteoarthritis of the RIGHT hip to have a RIGHT total hip arthroplasty. The patient's surgery went well with no complications. The patient is weightbearing as tolerated on the RIGHT lower extremity. The patient is on a regular diet. The patient was placed on Lovenox followed by aspirin for DVT prophylaxis. The patient was discharged home with home health. The patient will follow up with Dr. Rosa in 1-2 weeks. Pt Condition on Discharge: Good Discharge Disposition: Disch w/ Home Health Serv Discharge Instructions Diet Instructions: As Tolerated, No Restrictions Activities You Can Perform: Weight Bearing as [place] Activities to Avoid: Strenuous Activity Follow up Referrals: Orthopedics - 2 Weeks @ [facility] with Supa Rosa MD SNF[facility]/ with [facility] Home New Medications: Aspirin (Aspirin) 325 Mg Tab 325 MG PO DAILY Start Aspirin after Lovenox is completed. Prevent Blood Clot # 30 Ref 0 TAB Commode 3-in-1 (Commode 3-in-1) 1 Mis Mis 1 EA .ROUTE DIRECTED #1 Ref 0 EA Enoxaparin Inj (Lovenox Inj) 40 Mg/0.4 Ml Syr 40 MG SQ DAILY Start Aspirin after Lovenox is completed. Blood Clot Prevention # 10 Ref 0 SYRINGE Hydrocodone-Acetaminophen (Argyle) 5-325 mg Tab 1-2 TAB PO Q4H PRN PAIN #60 Ref 0 TAB Walker with Front Wheels (Walker with Front Wheels) 1 Mis Mis 1 EA .ROUTE DIRECTED #1 Ref 0 EA Continued Medications: Amlodipine (Amlodipine) 2.5 Mg Tab 2.5 MG PO DAILY Blood Pressure Management #30 Ref 0 TAB Atorvastatin (Atorvastatin) 10 Mg Tab 10 MG PO HS Cholesterol Management #30 Ref 0 TAB Estradiol (Estrace) 1 Mg Tab 1 MG PO DAILY Estrogen Supplements #30 Ref 0 TAB Norethindrone (Norethindrone) 5 Mg Tab 5 MG PO DAILY Ref 0 TAB Discontinued Medications: Acetaminophen (Tylenol 8 Hour Arthritis) 650 Mg Tab 1 TAB PO Q4-6H PRN PAIN SCALE 1 TO 10 Hydrocodone-Acetaminophen (Hydrocodone-Acetaminophen) 7.5-325 mg Tab 1 TAB PO Q4H PRN PAIN Ref 0 TAB Christiano Lima February 12, 2017 13:47
== END 2017-02-09 15:44 | disposition home health service (06) | DRG 470 ==
LOC: HSDI 02-07 05:10 → N06A 02-07 12:00
PROVIDERS: ADMIT Orthopaedic Surgery; ATTEND Orthopaedic Surgery
PROC: 0SR90JA Replacement of Right Hip Joint with Synthetic Substitute, Uncemented, Open Approach (ICD-10-PCS; principal; 2017-02-07 06:47)
DX: M16.11 Unilateral primary osteoarthritis, right hip (principal); I12.9 Hypertensive chronic kidney disease with stage 1 through stage 4 chronic kidney disease, or unspecified chronic kidney disease; E78.5 Hyperlipidemia, unspecified; N18.2 Chronic kidney disease, stage 2 (mild); M85.80 Other specified disorders of bone density and structure, unspecified site; Z87.891 Personal history of nicotine dependence
CPT/HCPCS: 73501; 73502; 76000; 85027; 86850; 86900; 86901; C1776; C9290; J0131; J0690; J1100; J1170; J1580; J1650; J2250; J2370; J2405; J2710; J3010; J3370; J7030; J7050; J7120